=== PATIENT | female | born 1985 | race Caucasian/White ===

== ENCOUNTER 2017-04-09 08:53 | Emergency (ER) | payer OTHER ==
[~2017-04-09] VITALS: Ht 172.7 cm; Wt 97.2 kg
[~2017-04-09 08:53] MED LIST: AMPH1TAB58 PO; BACL10TA PO; MELO15TA10 PO
[2017-04-09 08:58] VITALS: TEMP 36.8; Ht 172.7 cm; Wt 97.2 kg
[2017-04-09] MEDS ORDERED: OXYCODONE/ACETAMINOPHEN 5-325 TAB PO STA (09:23)
[2017-04-09] MEDS ORDERED: SULF800T23 PO ×2 (09:26→09:40)
[2017-04-09] MEDS ORDERED: CEPH500C PO ×2 (09:26→09:40)
--- NOTE | 2017-04-09 09:27 | EMERGENCY ROOM VISIT NOTE ---
History First contact with patient: 09:04 Chief Complaint: FACIAL PAIN/INJURY Stated Complaint: SWELLED LIP AND CHIN, INFECTION (BOIL?) History of Present Illness The patient is a 31 year old female who presents to the Emergency Room via private vehicle accompanied by male with complaints of "swollen lip and chin, infection". The patient states that yesterday she began with a small pimple just below her lower lip on her chin. She states that she picked at it, and then awoke today with swelling of the bottom lip, chin with pain radiating the left side of the jaw. She rates the pain as an 8/10. She states that she has had previous infections like these before and has been treated with Keflex and Bactrim with good success. She also notes additional cold-like symptoms with nasal congestion, and sore throat. She also notes associated cold sweats and vomiting but at this time feels well. Review of Systems A complete 6-point Review of Systems was discussed with the patient, with pertinent positives and negatives listed in the History of Present Illness. All remaining Review of Systems questions can be considered negative unless otherwise specified. Past Medical/Surgical History Medical Problems: (1) ADHD (attention deficit hyperactivity disorder) (2) Asthma Surgical Problems: (1) H/O section (2) History of delivery Family History No significant family history Social History Smoking Status: Current Every Day Smoker Alcohol Use: none Marital Status: in relationship Housing Status: lives with family Occupation Status: employed Current/Historical Medications Scheduled Amphetamine-Dextroamphetamine 10MG (Adderall Xr 10MG), 10 MG PO TID Cephalexin Monohydrate (Keflex), 500 MG PO QID Gabapentin (Gabapentin), 100 MG PO BID Paroxetine (Paroxetine HCl), 20 MG PO DAILY Sulfa/Trimethoprim (Bactrim Ds 800MG/160MG), 1 TAB PO BID Tizanidine (Tizanidine HCl), 4-8 MG PO HS Scheduled PRN Meloxicam (Mobic), 15 MG PO DAILY PRN for SCIATIC NERVE Oxycodone/Acetaminophen 5MG/325MG (Percocet 5MG/325MG), 1 TAB PO QID PRN for Pain Physical Exam Vital Signs Date Time Temp Pulse Resp B/P (MAP) Pulse Ox O2 Delivery O2 Flow Rate FiO2 04/09/17 09:41 72 14 116/84 98 04/09/17 08:58 36.8 105 20 135/94 100 Room Air Physical Exam VITAL SIGNS - Vital signs and nursing notes were reviewed. Stable. GENERAL - 31-year-old female appearing her stated age who is in no acute distress. Communicates well with provider and answers questions appropriately. SKIN - there is a small amount of edema overlying the inferior aspect of the patients anterior chin. There is a central region system with that of a small pimple. There is no fluctuance. It is localized. No intraoral involvement. Medical Decision & Procedures Medications Administered Medications (Trade) Dose Ordered Sig/Tracey Route Start Time Stop Time Status Last Admin Dose Admin Oxycodone/ Acetaminophen (Percocet 5-325mg Tab) 1 tab NOW STAT PO 04/09/17 09:23 04/09/17 09:24 DC 04/09/17 09:36 1 TAB Medical Decision Patient was seen and evaluated as above. She presents to us today with a small localized cellulitic infection to the anterior chin. It is not intraoral. She is nontoxic on exam. I favor her URI-like symptoms to be that of viral nature and not from a systemic response to her chin infection that she developed since yesterday. She notes good success with Keflex Bactrim in the past. This should cover the likely organisms. She will be given Keflex and Bactrim. She notes that she was experiencing pain, and requests something for pain here. She was given 1 Percocet, noting that she had one this morning and has seen to work well. I will not provide any further scripts for this. The Keflex and Bactrim was sent to the pharmacy for pickup. She was educated upon management, educated on worrisome symptoms which to return, had questions about discharge, and was discharged home in good condition. She denied chance of prior to providing medication. In the evaluation and treatment of this patient the following differential diagnoses were entertained: Cellulitis, sepsis, abscess, among others. Impression Primary Impression: Cellulitis Departure Information Dispostion Home / Self-Care Condition GOOD Prescriptions Sulfa/Trimethoprim (Bactrim Ds 800MG/160MG) Tab 1 TAB PO BID for 10 Days, #20 TAB . Prov: Natanael Engel, DEMAR 04/09/17 Cephalexin Monohydrate (Keflex) 500 Mg Cap 500 MG PO QID for 10 Days, #40 CAP . Prov: Natanael Engel PA-C 04/09/17 Referrals No Doctor, Assigned (PCP) Patient Instructions My [facility] Additional Instructions You were seen in the emergency department for a small cellulitic/skin infection on her chin. I recommend Keflex 500 mg every 6 hours for 10 days. I recommended Bactrim 1 tablet every 12 hours for 10 days. These are to antibiotics to help with the infection on the chin. Please watch for worsening of the infection to include worsening redness, swelling, fevers, chills and his are to persist please return. Please follow-up with your family doctor for recheck within 1 week. Please return with any new/concerning times.
[2017-04-09] MEDS ORDERED: PXL20 PO (09:28)
[2017-04-09] MEDS ORDERED: AMPH10CA3 PO (09:28)
[2017-04-09] MEDS ORDERED: ZNF/4 PO (09:28)
[2017-04-09] MEDS ORDERED: OXYC-57 PO (09:28)
[2017-04-09] MEDS ORDERED: NRN100 PO (09:28)
[2017-04-09 09:41] VITALS: BP 116/84; PULSE 72; O2SAT 98
== END 2017-04-09 09:40 | disposition home or self-care (01) ==
LOC: C.EDB 08:54 → C.EDA 09:40
DX: L03.211 Cellulitis of face (principal); F90.9 Attention-deficit hyperactivity disorder, unspecified type; J45.909 Unspecified asthma, uncomplicated; Z79.899 Other long term (current) drug therapy; F17.200 Nicotine dependence, unspecified, uncomplicated

== ENCOUNTER 2017-08-03 07:35 | Emergency (ER) | payer OTHER ==
[~2017-08-03] VITALS: Ht 167.6 cm; Wt 93.0 kg
[~2017-08-03 07:35] MED LIST changes: +AMPH10CA3 PO; -AMPH1TAB58 PO; -BACL10TA PO; +CEPH500C PO; +NRN100 PO; +OXYC-57 PO; +PXL20 PO; +SULF800T23 PO; +ZNF/4 PO
[2017-08-03 07:39] VITALS: BP 131/84; PULSE 110; TEMP 37.2; O2SAT 98; Ht 167.6 cm; Wt 93.0 kg
[2017-08-03] MEDS ORDERED: IBUPROFEN 200 MG TAB PO STA (07:48)
[2017-08-03] MEDS ORDERED: CLC/300 PO (07:55)
--- NOTE | 2017-08-03 07:55 | EMERGENCY ROOM VISIT NOTE ---
ED Visit Note First contact with patient: 07:42 CHIEF COMPLAINT: Right upper dental pain 2-3 days HISTORY OF PRESENT ILLNESS: Patient is a 31-year-old female who presents emergency department for evaluation of right upper dental pain from a fractured tooth. She has had symptoms for about 2 or 3 days. She notes a constant, throbbing pain, no drainage or discharge noted. The tooth has been broken for a while. She was treated last month for a dental infection with antibiotics as well. She has an appointment on August 13 to have the tooth extracted. She has not taken anything for her pain. Denies facial swelling or fever. She rates her pain a 10/10. REVIEW OF SYSTEMS: Review of systems as per HPI. All other systems reviewed were negative. At least 6 systems reviewed. PMH: Electronic medical records are reviewed and summarized as above/below. See Problem List. SOCIAL HISTORY: Patient lives at home. Smoker. PHYSICAL EXAM: Vital Signs: Reviewed Nurse's notes. CONSTITUTIONAL: Patient is a well-appearing 31-year-old female who is awake and alert and in no acute distress. Vital signs are stable. EARS: Tympanic membranes intact, not inflamed, have normal contour. External canals clear. MOUTH: Overall the patient has good dentition. The right upper first bicuspid is fractured. It is tender to percussion. There is slight swelling along the gumline although no focal abscess. Mucous membranes moist, no lesions, tongue and gums appear normal. THROAT: No pharyngeal injection, exudates, or tonsillar hypertrophy. Airway is patent. No trismus noted. FACE: No facial swelling is appreciated. No cellulitic changes. NECK: No lymphadenopathy. . ED course: The patient was seen and assessed as above. Her old records are reviewed. She was given a dose of clindamycin 300 mg orally in the emergency department. She requested ibuprofen for pain. Patient was reviewed in the [facility] Prescription Drug Monitoring Program, and she receives monthly Percocet prescriptions. Given this she was not prescribed any narcotics through the emergency department. She was advised to keep her appointment with her dentist for definitive care and management. The patient does not have any evidence for facial cellulitis or drainable abscess at this time. There is no evidence for Harsh's angina. Medication reconciliation: I attest that I have personally reviewed the patient' s current medication list. Blood pressure screening : Patient was found to have normal blood pressure on screening and does not require follow-up. Problem List Medical Problems: (1) Abscess Status: Resolved (2) Abscess and cellulitis Status: Resolved (3) ADHD (attention deficit hyperactivity disorder) Status: Chronic (4) Asthma Status: Chronic (5) Cellulitis Status: Resolved (6) Cervical strain Status: Resolved (7) Dentalgia Status: Resolved (8) Dizziness Status: Resolved (9) Dizziness Status: Resolved (10) Lumbago Status: Chronic (11) Muscle spasm of back Status: Resolved (12) Status: Resolved (13) Pyelonephritis Status: Resolved Surgical Problems: (1) H/O section Status: Resolved (2) History of delivery Status: Resolved Current/Historical Medications Scheduled Amphetamine-Dextroamphetamine 10MG (Adderall Xr 10MG), 10 MG PO TID Cephalexin Monohydrate (Keflex), 500 MG PO QID Clindamycin HCl (Clindamycin HCl), 1 CAP PO TID Gabapentin (Gabapentin), 100 MG PO BID Paroxetine (Paroxetine HCl), 20 MG PO DAILY Sulfa/Trimethoprim (Bactrim Ds 800MG/160MG), 1 TAB PO BID Tizanidine (Tizanidine HCl), 4-8 MG PO HS Scheduled PRN Meloxicam (Mobic), 15 MG PO DAILY PRN for SCIATIC NERVE Oxycodone/Acetaminophen 5MG/325MG (Percocet 5MG/325MG), 1 TAB PO QID PRN for Pain Allergies Coded Allergies: Amoxicillin (Verified Allergy, Intermediate, hives, 04/09/17) Fentanyl (Verified Allergy, Unknown, ., 04/09/17) Penicillins (Verified Allergy, Unknown, UNKNOWN, 04/09/17) Morphine (Verified Adverse Reaction, Unknown, n/v, 04/09/17) Vital Signs Date Time Temp Pulse Resp B/P (MAP) Pulse Ox O2 Delivery O2 Flow Rate FiO2 08/03/17 07:39 37.2 110 20 131/84 98 Room Air Medications Administered Medications (Trade) Dose Ordered Sig/Tracey Route Start Time Stop Time Status Last Admin Dose Admin Ibuprofen (Advil Tab) 800 mg NOW STAT PO 08/03/17 07:48 08/03/17 07:49 DC 08/03/17 08:01 800 MG Clindamycin HCl (Cleocin Cap) 300 mg NOW ONCE PO 08/03/17 08:00 08/03/17 08:01 DC 08/03/17 08:00 300 MG Departure Information Impression Primary Impression: Dentalgia Prescriptions Clindamycin HCl (Clindamycin HCl) 300 Mg Cap 1 CAP PO TID for 10 Days, #30 CAP Prov: Teodora Pierce PA 08/03/17 Referrals Jennifer. Hanna E. PA-C (PCP) Patient Instructions My [facility] Additional Instructions Clindamycin 300 mg: Take one pill 3 times daily for 10 days for your dental infection. Finish all antibiotics, even if your symptoms improve. All antibiotics can cause diarrhea. If this occurs and you feel worse or it does not resolve in 1-2 days follow up with your doctor or return to the Emergency Department as this could be signs of serious underlying problems. Any medication can cause an allergic reaction, stop the pills immediately and return to the ER for rash, hives, breathing difficulties, or swelling. Ibuprofen(Motrin, Advil) may be used for fever or pain. Use 600mg every six hours as needed. Take with food. Avoid using more than 2400mg in a 24 hour period. Do not use 2400mg per day for more than three consecutive days without physician direction. Prolonged inappropriate use can lead to stomach upset or ulcers. (AND/OR) Acetaminophen(Tylenol) may be used for fever or pain. Use 1000mg every six hours as needed. Avoid using more than 4000mg in a 24 hour period. Saltwater gargles after meals and before bedtime. Soft foods. Orajel/Anbesol/clove oil as needed for discomfort. Followup with your dentist for definitive management. You may also follow up with your primary care physician for pain/care management until you can be seen by your dentist.
[2017-08-03] MEDS ORDERED: CLINDAMYCIN HCL 150 MG CAP PO ONE (08:00)
== END 2017-08-03 08:09 | disposition home or self-care (01) ==
LOC: C.EDB 07:36 → C.EDA 08:09
DX: K03.81 Cracked tooth (principal); J45.909 Unspecified asthma, uncomplicated; F90.9 Attention-deficit hyperactivity disorder, unspecified type; Z72.0 Tobacco use; Z79.899 Other long term (current) drug therapy; Z88.0 Allergy status to penicillin; Z88.6 Allergy status to analgesic agent